=== PATIENT | male | born 1955 | race Caucasian/White ===

== ENCOUNTER → 2021-01-17 | Outpatient (CLI) | payer OTHER | LOC: LAB SHORT 15:06 | DX: D48.5 Neoplasm of uncertain behavior of skin (principal); C44.622 Squamous cell carcinoma of skin of right upper limb, including shoulder | CPT/HCPCS: 88305 ==

== ENCOUNTER 2022-05-15 16:24 | Inpatient (IN) | payer OTHER ==
[~2022-05-15] VITALS: Ht 177.8 cm; Wt 75.4 kg
[2022-05-15 16:55] LABS: Bicarbonate Venous 13.4 mmol/L (24.0-30.0); PCO2 Venous 24.9 mmHg (38-42); pH Blood Venous 7.23 (7.34-7.37)
[2022-05-15 21:18] LABS: Beta-hydroxybutyrate 85.8 mg/dL (0.2-2.8)
[2022-05-15 21:48] LABS: Magnesium, Blood 2.6 mg/dL (1.6-2.4); Phosphorus, Blood 4.3 mg/dL (2.5-4.9)
[2022-05-15 23:13] LABS: Bun/Creatinine Ratio 35.1 (12.0-20.0); Calcium, Blood 8.8 mg/dL (8.5-10.1); Creatinine, Blood 0.88 mg/dL (0.60-1.20); Potassium, Blood 3.8 mmol/L (3.5-5.5)
[2022-05-15] MEDS ORDERED: JARDIANCE25 MG PO (23:15)
[2022-05-15] MEDS ORDERED: RYBELSUS14 MG PO (23:16)
[2022-05-15] MEDS ORDERED: SYNTHROID100 M14 PO (23:17)
[2022-05-15] MEDS ORDERED: PIOGLITAZONE HC45 MG PO (23:17)
[2022-05-15] MEDS ORDERED: ATORVASTATIN CA20 MG PO (23:18)
[2022-05-15] MEDS ORDERED: METF500 PO (23:19)
[2022-05-16 03:39] LABS: Bun/Creatinine Ratio 34.4 (12.0-20.0); Calcium, Blood 8.4 mg/dL (8.5-10.1); Creatinine, Blood 0.84 mg/dL (0.60-1.20); Potassium, Blood 3.6 mmol/L (3.5-5.5)
[2022-05-16 11:14] LABS: Bun/Creatinine Ratio 27.7 (12.0-20.0); Calcium, Blood 8.4 mg/dL (8.5-10.1); Creatinine, Blood 0.76 mg/dL (0.60-1.20); Potassium, Blood 3.8 mmol/L (3.5-5.5)
[2022-05-17 05:17] LABS: BASOPHILS ABSOLUTE AUTO 0.01 K/mm3 (0.00-0.23); BASOPHILS PERCENT AUTO 0 % (0-2); EOSINOPHILS PERCENT AUTO 0 % (0-6); Hemoglobin 13.5 g/dL (13.5-17.5); IMMATURE GRAN ABSOLUTE AUTO 0.07 K/mm3 (0.00-0.10); IMMATURE GRAN PERCENT AUTO 1 % (0-1); LYMPHOCYTES ABSOLUTE AUTO 1.69 K/mm3 (0.84-5.20); LYMPHOCYTES PERCENT AUTO 12 % (21-46); MONOCYTES ABSOLUTE AUTO 1.78 K/mm3 (0.16-1.47); MONOCYTES PERCENT AUTO 13 % (4-13); Mean Corpuscular HGB 29.8 pg (26.0-34.0); Mean Corpuscular HGB Conc 34.6 g/dL (31.5-36.5); Mean Corpuscular Volume 86 fL (80-100); Mean Platelet Volume 9.9 fL (9.1-12.4); NEUTROPHILS ABSOLUTE AUTO 10.49 K/mm3 (1.96-9.15); NEUTROPHILS PERCENT AUTO 75 % (41-73); Platelet Count 292 K/mm3 (150-400); RDW Coefficient Variation 13.9 % (11.7-14.2); RDW Standard Deviation 43.9 fL (35.1-46.3); Red Blood Cell Count 4.53 M/mm3 (4.30-5.90); White Blood Cell Count 14.04 K/mm3 (4.00-11.30)
[2022-05-17 05:38] LABS: Albumin, Blood 3.3 g/dL (3.4-5.0); Anion Gap 13 mmol/L (6-16); Blood Urea Nitrogen 20 mg/dL (8-24); Bun/Creatinine Ratio 26.8 (12.0-20.0); CO2, Blood 19 mmol/L (21-32); Calcium, Blood 8.7 mg/dL (8.5-10.1); Chloride, Blood 101 mmol/L (98-108); Creatinine, Blood 0.75 mg/dL (0.60-1.20); Glomerular Filtration Rate 99 (60-); Glucose, Blood 137 mg/dL (70-99); Magnesium, Blood 2.6 mg/dL (1.6-2.4); Phosphorus, Blood 2.9 mg/dL (2.5-4.9); Potassium, Blood 3.5 mmol/L (3.5-5.5); Sodium, Blood 133 mmol/L (136-145)
[2022-05-17] MEDS ORDERED: BASAGLAR K100 UNIT/1 SC (11:10)
[2022-05-17] MEDS ORDERED: HUMALOG KW100 UNIT/1 SC ×2 (11:14→11:15)
[2022-05-17] MEDS ORDERED: ONDA4 PO (11:16)
[2022-05-17] MEDS ORDERED: PANT40 PO (11:17)
== END 2022-05-17 13:35 | disposition home or self-care (01) | DRG 638 ==
LOC: ER 16:24 → ICUW 21:29 → MEDS 21:29 → ICUW 22:35 → MEDS 05-16 18:13
PROVIDERS: Emergency Medicine; Family Medicine; Physician Assistant; ADMIT Internal Medicine
DX: E11.10 Type 2 diabetes mellitus with ketoacidosis without coma (principal); N17.9 Acute kidney failure, unspecified; E03.9 Hypothyroidism, unspecified; E86.0 Dehydration; Z85.828 Personal history of other malignant neoplasm of skin; Z98.890 Other specified postprocedural states
CPT/HCPCS: 36415; 80048; 80069; 82010; 82803; 82947; 83690; 83735; 84100; 84484; 85025; 93005; 93010; 96360; 96361; 99285-25; A9270; J1644; J1815; J2405; J3480; J7030; J7042; J7050

== ENCOUNTER → 2022-05-15 | Outpatient (CLI) | payer OTHER ==
[~2022-05-15] MED LIST: ATORVASTATIN CA20 MG; JARDIANCE25 MG; METF500 PO; PIOGLITAZONE HC45 MG PO; RYBELSUS14 MG PO; SYNTHROID100 M14 PO
[2022-05-15 15:16] LABS: BASOPHILS ABSOLUTE AUTO 0.02 K/mm3 (0.00-0.23); BASOPHILS PERCENT AUTO 0 % (0-2); EOSINOPHILS PERCENT AUTO 0 % (0-6); Hemoglobin 15.8 g/dL (13.5-17.5); IMMATURE GRAN ABSOLUTE AUTO 0.09 K/mm3 (0.00-0.10); IMMATURE GRAN PERCENT AUTO 1 % (0-1); LYMPHOCYTES ABSOLUTE AUTO 0.77 K/mm3 (0.84-5.20); LYMPHOCYTES PERCENT AUTO 5 % (21-46); MONOCYTES ABSOLUTE AUTO 0.94 K/mm3 (0.16-1.47); MONOCYTES PERCENT AUTO 6 % (4-13); Mean Corpuscular HGB 29.7 pg (26.0-34.0); Mean Corpuscular HGB Conc 34.3 g/dL (31.5-36.5); Mean Corpuscular Volume 87 fL (80-100); Mean Platelet Volume 9.8 fL (9.1-12.4); NEUTROPHILS ABSOLUTE AUTO 13.59 K/mm3 (1.96-9.15); NEUTROPHILS PERCENT AUTO 88 % (41-73); Platelet Count 428 K/mm3 (150-400); RDW Standard Deviation 43.8 fL (35.1-46.3); Red Blood Cell Count 5.32 M/mm3 (4.30-5.90); White Blood Cell Count 15.41 K/mm3 (4.00-11.30)
[2022-05-15 15:23] LABS: Albumin, Blood 4.6 g/dL (3.4-5.0); Bilirubin, Total 0.8 mg/dL (0.1-1.0); Bun/Creatinine Ratio 19.1 (12.0-20.0); Calcium, Blood 9.8 mg/dL (8.5-10.1); Creatinine, Blood 1.57 mg/dL (0.60-1.20); Globulin, Blood 4.6 g/dL (2.2-4.0); Potassium, Blood 3.9 mmol/L (3.5-5.5); Total Protein, Blood 9.2 g/dL (6.4-8.2)
== END | disposition home or self-care (01) ==
LOC: LAB SHORT 15:09
PROVIDERS: Physician Assistant Medical
DX: R10.84 Generalized abdominal pain (principal)
CPT/HCPCS: 80053; 83690; 85025

== ENCOUNTER 2023-03-28 11:35 | Emergency (ER) | payer OTHER ==
[2023-03-28] VITALS (10 sets, daily range): BP systolic 133–157; BP diastolic 72–83
[~2023-03-28] VITALS: Ht 177.8 cm; Wt 74.8 kg
[~2023-03-28 11:35] MED LIST changes: -ATORVASTATIN CA20 MG; +ATORVASTATIN CA20 MG PO; +BASAGLAR K100 UNIT/1 SC; +HUMALOG KW100 UNIT/1 SC; -JARDIANCE25 MG; +JARDIANCE25 MG PO; +ONDA4 PO; +PANT40 PO
[2023-03-28] MEDS ORDERED: OxyCODONE HCL 5 MG TAB PO ONE (11:50)
[2023-03-28] MEDS ORDERED: CeFAZolin Sodium 2,000 MG VIAL ONE (14:49)
[2023-03-28] MEDS ORDERED: propofoL 20 ML IV ONE (14:59)
[2023-03-28] MEDS ORDERED: FentaNYL Citrate 50 MCG/ML 5 ML Injection ONE (14:59)
--- NOTE | 2023-03-28 15:05 | NUR ---
PT TRANSFERED TO [facility] FROM ER. Lungs clear T/O to Auscultation. VSS. Pt reports mild pain to left fingers. History, Chart, Medications and Allergies reviewed before start of procedure. Pt states that he ate breakfast at 0700 and coffee at 0800. Patient States Post-Procedure ride home has been arranged with S/O. Hearing aids and belongings with S/O. Glasses to PACU.
[2023-03-28] MEDS ORDERED: Ondansetron HCl 2 MG / ML 2ML Vial ONE (15:29)
[2023-03-28] MEDS ORDERED: Ketorolac Tromethamine 30mg Vial ONE (15:29)
[2023-03-28] MEDS ORDERED: Dexamethasone Sod Phos 10 MG/ML 1ML VIAL ONE (15:29)
[2023-03-28] MEDS ORDERED: HYDROcodone 5-APAP 325 TAB PO ONE (16:35)
--- NOTE | 2023-03-28 17:30 | NUR ---
DISCHARGE NOTE Discharge instructions reviewed with patient. Patient verbalizes understanding. Copy given to patient to take home. Dressing remains C/D/I. Assisted PT with getting dressed, PT stable standing at bedside. PT has no complaints of pain after pain pill given in stepdown. PT able to wiggle L fingers, cap refill 2 seconds. Discharged via wheelchair to private car for ride homewith DC instructions in hand and belongings.
== END 2023-03-28 14:32 | disposition other institution (70) ==
LOC: ER 11:35
DX: S68.627A Partial traumatic transphalangeal amputation of left little finger, initial encounter (principal); S62.633B Displaced fracture of distal phalanx of left middle finger, initial encounter for open fracture; S61.215A Laceration without foreign body of left ring finger without damage to nail, initial encounter; E11.9 Type 2 diabetes mellitus without complications; E03.9 Hypothyroidism, unspecified; Z79.4 Long term (current) use of insulin; Z79.84 Long term (current) use of oral hypoglycemic drugs; Z79.899 Other long term (current) drug therapy; W31.2XXA Contact with powered woodworking and forming machines, initial encounter; Y93.89 Activity, other specified
CPT/HCPCS: 73130; 82947; 99284-25; A9270; C1769; J0690; J1100; J1885; J2405; J2704; J3010